=== PATIENT | male | born 1975 | race Caucasian/White ===

== ENCOUNTER 2018-01-26 14:30 | Emergency (ER) | payer SELFPAY ==
[~2018-01-26] VITALS: Ht 177.8 cm; Wt 93.2 kg
[2018-01-26 14:43] VITALS: BP 148/71; PULSE 79; TEMP 98.6
== END 2018-01-26 18:09 | disposition home or self-care (01) ==
LOC: COL.ER 14:30
DX: S93.411A Sprain of calcaneofibular ligament of right ankle, initial encounter (principal); X50.0XXA Overexertion from strenuous movement or load, initial encounter; Y92.099 Unspecified place in other non-institutional residence as the place of occurrence of the external cause